=== PATIENT | female | born 1980 | race Caucasian/White ===

== ENCOUNTER 2018-03-24 11:27 | Emergency (ER) | payer OTHER ==
[~2018-03-24] VITALS: Ht 149.9 cm; Wt 50.3 kg
[2018-03-24] MEDS ORDERED: TRAM1TAB98 (12:06)
[2018-03-24] MEDS ORDERED: NEURONTIN300 MG (12:06)
[2018-03-24] MEDS ORDERED: PROBIOTIC1 EAC1 (12:06)
== END 2018-03-24 16:58 | disposition home or self-care (01) ==
LOC: ER 11:27
DX: K92.1 Melena (principal); K59.09 Other constipation; R10.84 Generalized abdominal pain